=== PATIENT | female | born 1940 | race Two or more races ===

== ENCOUNTER 2017-12-17 15:11 | Outpatient (CLI) | payer OTHER ==
[~2017-12-17 15:11] MED LIST: AMBIEN10 MG PO; AMLODIPINE-BENA1 CA1 PO; AVAPRO300 MG; CALCIUM ACETAT667 MG; CARVEDILOL12.5 MG; COUMADIN2 MG PO; COUMADIN3 MG PO; COUMADIN4 MG PO; DIGOX125 MCG; GABAPENTIN100 MG PO; GABAPENTIN25 GM MC; LASIX20 MG PO; LEVOTHROID25 MCG PO; METOPROLOL TAR100 MG PO; OXYBUTYNIN CHLOR5 MG; PERCOCET 5/3251 TAB PO; SYNTHROID50 MCG PO; TUSNEL DIABETI118 ML PO; TUSSI-PRES LIQ118 ML PO; VASOTEC10 MG PO; VOLTAREN100 GM TP; ZITHROMAX500 MG PO; ZYLOPRIM300 MG PO
== END 2017-12-17 15:24 | disposition home or self-care (01) ==
LOC: TOM 15:11
DX: I63.039 Cerebral infarction due to thrombosis of unspecified carotid artery (principal); F01.50 Vascular dementia, unspecified severity, without behavioral disturbance, psychotic disturbance, mood disturbance, and anxiety; I48.0 Paroxysmal atrial fibrillation

== ENCOUNTER 2018-01-09 08:35 | Outpatient (CLI) | payer OTHER ==
[~2018-01-09] VITALS: Ht 152.4 cm; Wt 55.8 kg
== END 2018-01-09 08:50 | disposition home or self-care (01) ==
LOC: OFIC 805 08:35
DX: H90.3 Sensorineural hearing loss, bilateral (principal); H61.23 Impacted cerumen, bilateral

== ENCOUNTER → 2018-06-12 | Outpatient (CLI) | payer OTHER | END | disposition home or self-care (01) | LOC: NUCLEAR 11:49 | DX: M81.0 Age-related osteoporosis without current pathological fracture (principal) ==

== ENCOUNTER 2019-02-22 08:26 | Emergency (ER) | payer OTHER ==
[~2019-02-22] VITALS: Ht 157.5 cm; Wt 56.7 kg
== END 2019-02-22 11:39 | disposition home or self-care (01) ==
LOC: ER 08:26
DX: J06.9 Acute upper respiratory infection, unspecified (principal)

== ENCOUNTER 2019-05-12 19:49 | Inpatient (IN) | payer OTHER ==
[~2019-05-12] VITALS: Ht 157.5 cm; Wt 56.7 kg
[2019-05-12] MEDS ORDERED: FUROSEMIDE20 MG (20:03)
[2019-05-12] MEDS ORDERED: ATORVASTATIN CA20 MG (20:03)
[2019-05-12] MEDS ORDERED: LEVOXYL25 MCG (20:04)
[2019-05-12] MEDS ORDERED: DONEPEZIL HCL OD5 MG (20:05)
[2019-05-12] MEDS ORDERED: [UNRECOGNIZED DRUG - CODE] (20:07)
[2019-05-12] MEDS ORDERED: COUMADIN4 MG (20:12)
--- NOTE | 2019-05-12 20:15 | NUR ---
SE RECIBE PTE. FEMENINA ALERTA CONCIENTE Y ORIENTADA EN COMPANIA DE FAMILIAR PTE. CON REFERIDO DE DR. HOMA LOGAN REF. PTE. BACTERIA EN LA ORINA.
[2019-05-14] MEDS ORDERED: VITAMIN D35000 UNIT (08:15)
== END 2019-05-18 14:53 | disposition home or self-care (01) | DRG 690 ==
LOC: ER 19:49 → MEDJ 21:03 → SEC-K 21:03 → MEDJ 05-13 00:15
PROVIDERS: ADMIT Specialist
DX: N39.0 Urinary tract infection, site not specified (principal); N18.1 Chronic kidney disease, stage 1; I12.9 Hypertensive chronic kidney disease with stage 1 through stage 4 chronic kidney disease, or unspecified chronic kidney disease; I25.10 Atherosclerotic heart disease of native coronary artery without angina pectoris; I48.0 Paroxysmal atrial fibrillation; E03.8 Other specified hypothyroidism; I34.0 Nonrheumatic mitral (valve) insufficiency; I07.1 Rheumatic tricuspid insufficiency; I27.29 Other secondary pulmonary hypertension; I25.2 Old myocardial infarction; H90.3 Sensorineural hearing loss, bilateral; M10.9 Gout, unspecified; Z16.12 Extended spectrum beta lactamase (ESBL) resistance; Z79.01 Long term (current) use of anticoagulants; Z95.810 Presence of automatic (implantable) cardiac defibrillator

== ENCOUNTER 2020-06-30 09:27 | Emergency (ER) | payer OTHER ==
[~2020-06-30] VITALS: Ht 157.5 cm; Wt 58.1 kg
[~2020-06-30 09:27] MED LIST changes: +ATORVASTATIN CA20 MG; +COUMADIN4 MG; +DONEPEZIL HCL OD5 MG; +FUROSEMIDE20 MG; +LEVOXYL25 MCG; +VITAMIN D35000 UNIT; +[UNRECOGNIZED DRUG - CODE]
[2020-06-30] MEDS ORDERED: DITROPAN XL5 MG (09:39)
== END 2020-06-30 14:33 | disposition home or self-care (01) ==
LOC: ER 09:27
DX: R42 Dizziness and giddiness (principal); Z20.828 Contact with and (suspected) exposure to other viral communicable diseases

== ENCOUNTER 2020-08-01 10:24 | Inpatient (IN) | payer OTHER ==
[~2020-08-01] VITALS: Ht 157.5 cm; Wt 59.0 kg
[~2020-08-01 10:24] MED LIST changes: +DITROPAN XL5 MG
[2020-08-01] MEDS ORDERED: WARFARIN SODIUM5 MG (10:50)
[2020-08-01] MEDS ORDERED: GRALISE600 MG (10:51)
[2020-08-01] MEDS ORDERED: ZYLOPRIM100 M1 (10:52)
== END 2020-08-04 16:30 | disposition home or self-care (01) | DRG 918 ==
LOC: ER 10:24 → MEDI 17:36
PROVIDERS: ADMIT Specialist; ATTEND Specialist
PROC: 4A12X4Z Monitoring of Cardiac Electrical Activity, External Approach (ICD-10-PCS; 2020-08-01)
PROC: B54MZZZ Ultrasonography of Right Upper Extremity Veins (ICD-10-PCS; principal; 2020-08-02)
DX: T45.511A Poisoning by anticoagulants, accidental (unintentional), initial encounter (principal); K62.5 Hemorrhage of anus and rectum; I42.8 Other cardiomyopathies; N17.8 Other acute kidney failure; I48.91 Unspecified atrial fibrillation; E03.8 Other specified hypothyroidism; M10.9 Gout, unspecified; I34.0 Nonrheumatic mitral (valve) insufficiency; I07.1 Rheumatic tricuspid insufficiency; H90.3 Sensorineural hearing loss, bilateral; D64.9 Anemia, unspecified; I27.21 Secondary pulmonary arterial hypertension; S60.221A Contusion of right hand, initial encounter; Z20.828 Contact with and (suspected) exposure to other viral communicable diseases; Z95.810 Presence of automatic (implantable) cardiac defibrillator

== ENCOUNTER → 2020-10-17 | Outpatient (CLI) | payer OTHER ==
[~2020-10-17] MED LIST changes: +GRALISE600 MG; +WARFARIN SODIUM5 MG; +ZYLOPRIM100 M1
== END | disposition home or self-care (01) ==
LOC: NUCLEAR 13:30
PROVIDERS: ATTEND Specialist
DX: M81.0 Age-related osteoporosis without current pathological fracture (principal)

== ENCOUNTER 2021-03-21 10:51 | Emergency (ER) | payer OTHER ==
[~2021-03-21] VITALS: Ht 154.9 cm; Wt 56.7 kg
[2021-03-21] MEDS ORDERED: ELIQUIS2.5 MG (11:02)
[2021-03-21] MEDS ORDERED: INTEGRA PLUS C1 EACH (11:06)
[2021-03-21] MEDS ORDERED: CLARITIN10 MG PO (14:02)
[2021-03-21] MEDS ORDERED: ANTI-ITCH28 G1 TOP (14:02)
== END 2021-03-21 14:14 | disposition home or self-care (01) ==
LOC: ER 10:51
DX: R53.1 Weakness (principal); L29.8 Other pruritus; Z03.818 Encounter for observation for suspected exposure to other biological agents ruled out

== ENCOUNTER 2022-09-13 07:59 | Outpatient (CLI) | payer OTHER ==
[~2022-09-13 07:59] MED LIST changes: +ANTI-ITCH28 G1 TOP; +CLARITIN10 MG PO; +ELIQUIS2.5 MG; +INTEGRA PLUS C1 EACH
== END 2022-09-13 11:51 | disposition home or self-care (01) ==
LOC: NUCLEAR 07:59
PROVIDERS: ATTEND Psychiatry & Neurology Clinical Neurophysiology
DX: I63.30 Cerebral infarction due to thrombosis of unspecified cerebral artery (principal)

== ENCOUNTER 2022-12-16 13:07 | Outpatient (CLI) | payer OTHER | END 2022-12-16 13:08 | disposition home or self-care (01) | LOC: NUCLEAR 13:07 | PROVIDERS: ATTEND Specialist | DX: M81.0 Age-related osteoporosis without current pathological fracture (principal) ==

== ENCOUNTER 2023-03-27 08:49 | Outpatient (CLI) | payer OTHER | END 2023-03-27 08:51 | disposition home or self-care (01) | LOC: RAD 08:49 | PROVIDERS: ATTEND Specialist | DX: J45.998 Other asthma (principal) ==

== ENCOUNTER → 2023-08-26 | Outpatient (CLI) | payer OTHER | END | disposition home or self-care (01) | LOC: MAMO-SONO 08:35 | PROVIDERS: ATTEND Internal Medicine Hematology & Oncology | DX: Z12.31 Encounter for screening mammogram for malignant neoplasm of breast (principal); N63.0 Unspecified lump in unspecified breast; N64.4 Mastodynia ==

== ENCOUNTER 2023-10-07 08:30 | Outpatient (CLI) | payer OTHER | END 2023-10-07 08:32 | disposition home or self-care (01) | LOC: TOM 08:30 | PROVIDERS: ATTEND Internal Medicine Hematology & Oncology | DX: D51.3 Other dietary vitamin B12 deficiency anemia (principal); D53.0 Protein deficiency anemia; I10 Essential (primary) hypertension; I34.1 Nonrheumatic mitral (valve) prolapse; E78.2 Mixed hyperlipidemia; I42.0 Dilated cardiomyopathy; Z95.810 Presence of automatic (implantable) cardiac defibrillator; R97.0 Elevated carcinoembryonic antigen [CEA]; Z88.1 Allergy status to other antibiotic agents ==

== ENCOUNTER 2024-07-12 12:25 | Emergency (ER) | payer OTHER ==
[~2024-07-12] VITALS: Ht 157.5 cm; Wt 58.1 kg
[2024-07-12] MEDS ORDERED: ENTRESTO 24 MG1 EACH (12:53)
[2024-07-12 14:22] LABS: HEMATOCRIT 40.4 % (36.0-45.00); HEMOGLOBIN 13.4 g/dL (12.0-15.00); MEAN CELL VOLUME 89.5 fL (80.00-100.00); MEAN CORPUSCULAR HEMOGLOBIN 29.8 pg (27.00-32.0); MEAN CORPUSCULAR HGB CONC 33.3 g/dl (32.0-36.0); PLATELET COUNT 173 K/uL (150-450); RED BLOOD COUNT 4.51 M/uL (4.00-6.00); RED CELL DISTRIBUTION WIDTH 16.2 % (11.5-14.5)
[2024-07-12 14:49] LABS: ALBUMIN 3.7 gm/dL (3.4-5.0); BILIRUBIN TOTAL 0.75 mg/dL (0.3-1.2); CALCIUM 8.6 mg/dL (8.5-10.1); CREATININE SERUM 1.9 mg/dL (0.55-1.02); GFR 25.18; GLOBULINA 4.1 G/DL (2.4-3.5); POTASSIUM 4.91 mEq/L (3.5-5.1); TOTAL PROTEIN 7.8 gm/dL (6.4-8.2)
== END 2024-07-12 19:24 | disposition home or self-care (01) ==
LOC: ER 12:26
PROVIDERS: Emergency Medicine
DX: I48.91 Unspecified atrial fibrillation (principal); R42 Dizziness and giddiness; Z20.822 Contact with and (suspected) exposure to COVID-19; Z88.1 Allergy status to other antibiotic agents

== ENCOUNTER 2024-08-06 09:27 | Outpatient (CLI) | payer OTHER ==
[~2024-08-06 09:27] MED LIST changes: +ENTRESTO 24 MG1 EACH
== END 2024-08-06 09:28 | disposition home or self-care (01) ==
LOC: NUCLEAR 09:27
PROVIDERS: ATTEND Internal Medicine Cardiovascular Disease
DX: I42.8 Other cardiomyopathies (principal)

== ENCOUNTER 2025-01-28 13:57 | Inpatient (IN) | payer OTHER ==
[~2025-01-28] VITALS: Ht 152.4 cm; Wt 52.2 kg
--- NOTE | 2025-01-28 14:11 | NUR ---
SE RECIBE PTE ALERTA Y ORIENTADA X3, ACOMPANADA POR FAMILIAR. FAMILIAR VIENE CON REFERIDO POR DR. TERE HUGHES. SE MIDEN S/V Y SE UBICA.
--- NOTE | 2025-01-28 15:59 | NUR ---
SE ORIENTA A PACIENTE SOBRE [place] MEDICO, REFIERE ENTENDER. SE REALIZAN MUESTRAS DE LABORATORIO BAJO MEDIDAS ASEPTICAS. PACIENTE MANEJADA POR . PENDIENTE RE-EVALUACION MEDICA.
[2025-01-28 16:11] LABS: HEMATOCRIT 33.8 % (36.0-45.00); HEMOGLOBIN 10.7 g/dL (12.0-15.00); MEAN CELL VOLUME 95.2 fL (80.00-100.00); MEAN CORPUSCULAR HEMOGLOBIN 30.1 pg (27.00-32.0); MEAN CORPUSCULAR HGB CONC 31.6 g/dl (32.0-36.0); PLATELET COUNT 146 K/uL (150-450); RED BLOOD COUNT 3.55 M/uL (4.00-6.00); RED CELL DISTRIBUTION WIDTH 14.9 % (11.5-14.5)
[2025-01-28 16:26] LABS: CALCIUM 9.3 mg/dL (8.5-10.1); CREATININE SERUM 2.26 mg/dL (0.55-1.02); GFR 20.61; POTASSIUM 5.28 mEq/L (3.5-5.1)
[2025-01-28 18:09] LABS: URINE APPEARANCE Clear; URINE BILIRRUBIN Negative (NEGATIVE); URINE BLOOD Negative; URINE COLOR Yellow; URINE KETONE Negative (NEGATIVE); URINE LEUKOCYTE Trace; URINE NITRATE Positive; URINE PROTEIN Negative (NEGATIVE); URINE UROBILINOGEN 0.2 E.U./dl
[2025-01-28 18:19] LABS: URINE EPITHELIAL CELLS 6.1 uL (0.0-38.8); URINE RBC 2.3 uL (0.0-20.8); URINE WBC 25.4 uL (0.0-23.2)
[2025-01-28 18:23] LABS: URINE CAST 0.58 uL (0.0-1.40); URINE GLUCOSE 500 MG/DL (NEGATIVE)
[2025-01-28] MEDS ORDERED: GABAPENTIN 100 MG CAPSULE PO SCH (21:00)
[2025-01-29 02:41] VITALS: BP 137/85; O2SAT 100
[2025-01-29] MEDS ORDERED: LEVOTHYROXINE SODIUM 25 MCG TABLET PO SCH (06:00)
[2025-01-29 08:33] LABS: INR 1.03; PARTIAL THROMBOPLASTIN TIME 26.2 SECONDS (22.0-34.0); PROTHROMBIN TIME 11.2 SECONDS (9.0-11.5)
[2025-01-29] MEDS ORDERED: PATIENTS OWN MEDICATION (MEDICAMENTO EN PISO) PO SCH (09:00)
[2025-01-29] MEDS ORDERED: APIXABAN 2.5 MG TABLET PO SCH (09:00)
[2025-01-29] MEDS ORDERED: ALLOPURINOL 100 MG TABLET PO SCH (09:00)
[2025-01-29] MEDS ORDERED: CARVEDILOL 25 MG TABLET PO SCH (09:00)
[2025-01-29 09:02] VITALS: BP 155/96; O2SAT 97
[2025-01-29] MEDS ORDERED: SODIUM CHLORIDE 0.45 % 1,000 ML IV SCH (14:30)
[2025-01-29 15:13] LABS: ALBUMIN 3.6 gm/dL (3.4-5.0); BILIRUBIN TOTAL 0.5 mg/dL (0.3-1.2); CALCIUM 9.1 mg/dL (8.5-10.1); CREATININE SERUM 1.88 mg/dL (0.55-1.02); GFR 25.49; GLOBULINA 3.1 G/DL (2.4-3.5); POTASSIUM 4.38 mEq/L (3.5-5.1); TOTAL PROTEIN 6.7 gm/dL (6.4-8.2)
[2025-01-29] MEDS ORDERED: DONEPEZIL HCL 5 MG TABLET PO SCH (17:00)
[2025-01-29] MEDS ORDERED: ATORVASTATIN CALCIUM 20 MG TABLET PO SCH (17:00)
[2025-01-29 18:03] VITALS: BP 164/87
[2025-01-30 02:00] VITALS: BP 134/74; O2SAT 97
[2025-01-30] MEDS ORDERED: VITAMIN B COMPLEX/LYSINE 1 ML ML PO SCH (09:00)
[2025-01-30 09:03] VITALS: BP 130/88; O2SAT 97
[2025-01-30 11:27] LABS: ALBUMIN 3.5 gm/dL (3.4-5.0); BILIRUBIN TOTAL 0.51 mg/dL (0.3-1.2); CALCIUM 9.2 mg/dL (8.5-10.1); CREATININE SERUM 1.95 mg/dL (0.55-1.02); GFR 24.44; GLOBULINA 3.4 G/DL (2.4-3.5); POTASSIUM 4.8 mEq/L (3.5-5.1); TOTAL PROTEIN 6.9 gm/dL (6.4-8.2)
[2025-01-30 18:51] VITALS: BP 140/80
[2025-01-31 01:40] VITALS: BP 103/66; O2SAT 97
[2025-01-31 07:30] LABS: ALBUMIN 3.5 gm/dL (3.4-5.0); BILIRUBIN TOTAL 0.53 mg/dL (0.3-1.2); CALCIUM 9.1 mg/dL (8.5-10.1); CREATININE SERUM 1.91 mg/dL (0.55-1.02); GFR 25.03; GLOBULINA 2.9 G/DL (2.4-3.5); POTASSIUM 4.7 mEq/L (3.5-5.1); TOTAL PROTEIN 6.4 gm/dL (6.4-8.2); TSH 1.61 uIU/mL (0.358-3.74)
[2025-01-31 09:30] VITALS: BP 124/69; O2SAT 99
== END 2025-01-31 18:56 | disposition home or self-care (01) | DRG 683 ==
LOC: ER 14:00 → MEDJ 20:08
PROVIDERS: General Practice; Internal Medicine; Internal Medicine Nephrology; ADMIT Specialist; ATTEND Specialist
PROC: 4A12X4Z Monitoring of Cardiac Electrical Activity, External Approach (ICD-10-PCS; 2025-01-29)
PROC: BT4JZZZ Ultrasonography of Kidneys and Bladder (ICD-10-PCS; principal; 2025-01-30)
PROC: B24BYZZ Ultrasonography of Heart with Aorta using Other Contrast (ICD-10-PCS; 2025-01-30)
DX: N18.9 Chronic kidney disease, unspecified (principal); N39.0 Urinary tract infection, site not specified; E87.5 Hyperkalemia; I10 Essential (primary) hypertension

== ENCOUNTER 2025-02-18 10:48 | Outpatient (CLI) | payer OTHER | END 2025-02-18 10:49 | disposition home or self-care (01) | LOC: NUCLEAR 10:48 | PROVIDERS: ATTEND Specialist | DX: M81.0 Age-related osteoporosis without current pathological fracture (principal) ==